=== PATIENT | female | born 1965 | race Caucasian/White ===

== ENCOUNTER 2017-05-25 09:03 | Inpatient (IN) | payer OTHER ==
[~2017-05-25] VITALS: Ht 167.6 cm; Wt 88.5 kg
[2017-05-28] MEDS ORDERED: SUDOGEST30 MG PO (14:48)
[2017-05-28] MEDS ORDERED: VENTOLIN HFA18 GM INH (14:48)
[2017-05-28] MEDS ORDERED: ANIMAL CHEWS1 EACH PO (14:49)
[2017-05-28] MEDS ORDERED: BENADRYL25 MG PO (14:49)
[2017-05-28] MEDS ORDERED: VITAMIN D5000 UNI1 PO (14:50)
--- NOTE | 2017-06-06 10:11 | NUR ---
06/06/17 1011 VanessaPaco neves BP BEING TREATED BY THE OFFC SPEC.
--- NOTE | 2017-06-06 11:45 | NUR ---
PT RECEIVED FROM PACU AT 1120. PT NAUSEATED UPON ARRIVAL, GIVEN 4 MG ZOFRAN. PT TRANSFERED TO BED. BEDSIDE REPORT RECEIVED. PT O2 SATS 88% ON 2L NC, INCREASED TO 3L, CONTINUOUS PULSE OX IN PLACE. PT DROWSY. PT BOWEL TONES ACTIVE. PT ABLE TO WIGGLE TOES, DORSI/PLANTAR FLEXTION WEAK. PT WITH GALO IN PLACE, DRAINING BRIGHT YELLOW URINE. DAYANA PAD INPLACE, NO DRAINAGE NOTED. PT CONTINUES TO BE NAUSEATED, 12.5 MG PHENERGAN GIVEN. PT ALLOWED TO REST.
--- NOTE | 2017-06-06 12:29 | NUR ---
PT CONTINUES TO BE SLEEPY. 02 SATS 93% ON 3L NC. PT DENIES PAIN. PT DENIES NEEDS AT THIS TIME.
--- NOTE | 2017-06-06 13:30 | NUR ---
PT CONTINUES TO BE SLEEPY, O2 SATS 95% ON 3L NC. PT DENIES PAIN. DURAMORPH RESOLVING, PT ABLE TO PLANTAR/DORSI FLEX. GALO CATH DRAININ FREELY. PT DENIES NEEDS AT THIS TIME.
--- NOTE | 2017-06-06 16:23 | NUR ---
PT RESTING IN BED. PT CONTINUES TO BE DROWSY BUT IS MORE ALERT. PT DENIES PAIN, DURAMORPH HAS RESOLVED, CMS INTACT. O2 SATS 99% ON 3L NC, WEANED TO 2L, CONTINUOUS PULSE OX IN PLACE. PT DENIES NAUSEA, INSTRUCTED TO SIP WATER SLOWLY. VAGINAL PACKING IN PLACE, SMALL AMOUNT OF AVGINAL BLEEDING NOTED TO PERINEAL PAD. DISCUSSED PLAN OF CARE FOR EVENING, PLAN TO SIT AT EDGE OF BED. PT DENIES NEEDS AT THIS TIME. SPOUSE AT BEDSIDE.
--- NOTE | 2017-06-06 18:16 | NUR ---
PT RECEIVED FROM PACU AT 1120. PT DROWSY AND NAUSEATED. PT RECEIVING REGLAN, PHENERGAN AND ZOFRAN. PT ON 2L NC, CONTINUOUS PULSE OX. PT ON CLEAR LIQUID DIET, ADVANCE TOLERATED. PT WITH VAGINAL PACKING, SCANT AMOUNT OF VAGINAL BLEEDING. GALO CATH, DRAINING YELLOW URINE, QS. IV FLUIDS INFUSING AT 125 ML/HR.
--- NOTE | 2017-06-06 18:33 | NUR ---
MD TO BEDSIDE. PT EATING CLEAR LIQUID TRAY. PT COMPLAINT OF VAGINAL PAIN. NEW ORDER FOR TORADOL, SCOPE PATCH AND MECLAZINE.
--- NOTE | 2017-06-06 20:59 | NUR ---
PT ATE 50% OF CLEAR LIQUID TRAY, REPORTS NAUSEA MUCH IMPROVED, SAT AT BEDSIDE AND LINENS CHANGED. SCANT VAG DRAINAGE, WATCHING TV PROGRAM. CALL LIGHT IN EASY REACH.
--- NOTE | 2017-06-06 22:30 | NUR ---
RESTING QUEITLY, RESP EVEN AND UNLABORED OXIMETER 95% WITH O2 1L/NC, HRR-[id number]. NO FURTHER C/O NAUSEA. IRAJ PATENT.
--- NOTE | 2017-06-07 01:52 | NUR ---
PT AWAKE WATCHING TV, REQUESTED POPCYCLE TO EAT, CONT TO REPORT NAUSEA MUCH IMPROVED. PAD WITH SCANT AMOUNT LIGHT RED DRAINAGE. STATES SHE IS COMFORTABLE. IVF PATENT. SCD'S ON. CALL LIGHT IN EASY REACH.
--- NOTE | 2017-06-07 03:00 | NUR ---
PT MOSTLY SLEEPING, WOKE WHEN RN CHECKED ON HER. IV CONTINUES TO INFUSE.
--- NOTE | 2017-06-07 04:28 | NUR ---
CHARGE NURSE BROUGHT TO THIS RN ATTENTION THAT THE TORADOL WAS MIS-TIMED BY THE PHARMACY, AND THIS RN INADVERTENTLY GAVE TORADOL 30 MG WITHIN 2 HOURS OF THE DOSE AT 0059, THE EMARS SHOWED THE DOSE BEING LATE AT THE TIME THIS NURSE ADMINISTERED IT. NOTIFIED DR. SUÁREZ [phone] OF THE MED ERROR, AND CHARGE NURSE HAS REPORTED TO THE ASSOCIATE [employer]. PT WITH EYES CLOSED, RESP. EVEN AND UNLABORED AT THIS TIME. GALO WITH ELBA URINE.
--- NOTE | 2017-06-07 06:18 | NUR ---
PT CURRENTLY SLEEPING. DANGLED X 1 THIS SHIFT, WITH FEET OVER EDGE OF BED, BUT NOT SITTING UPRIGHT DUE TO THE PACKING IN VAG. CAUSING PAIN WHEN SITTING ON THE BED. EARLY IN SHIFT WAS VERY NAUSEATED, BUT SINCE 99 PT HAS NOT REQUIRED MEDICATION FOR NAUSEA. DID REQUEST AND RECEIVE PAIN MED X 1 THIS SHIFT. GALO PATENT, PER ORDER, CAN BE REMOVED ONCE PT IS UP AND AROUND. IV INFUSING PER ORDER.
--- NOTE | 2017-06-07 07:20 | NUR ---
BEDSIDE HANDOFF REPORT RECEIVED FROM DIGITAL RETOUCHER RN. PT SLEEPING, LEFT UNDISTURBED. GALO CATH IN PLACE, DRAINING FREELY.
--- NOTE | 2017-06-07 08:03 | NUR ---
PT RESTING IN BED. PT STATES PAIN TOLERABLE, RATING 2/10. O2 SATS 93% ON 1L, CONTINUOUS PULSE OX. IV FLUIDS INFUSING AT 125 ML/HR. PT DENIES NAUSEA, ADVANCED TO REGULAR DIET, ASSISTED WITH ORDERING. PT SAT AND STOOD AT EDGE OF BED, PT ABLE TO AMBULATE WITH ASSISTANCE, GALO CATH REMOVED PER ORDER. PT WITH SCDS IN PLACE, WITHOUT EDEMA. PT DENIES NEEDS AT THIS TIME. DISCUSSED PLAN OF CARE TODAY.
--- NOTE | 2017-06-07 08:38 | NUR ---
AWAKE IN BED. ASSIST NURSE [place]IN HELPING TO STAND. EMPTY GARBAGE. FRESH ICE WATER. CHANGE CHUX. GOT CHAIR READY FOR SITTING.
--- NOTE | 2017-06-07 12:00 | NUR ---
AWAKE IN BED. NEW HOT TEA AND WATER. TOOK VITALS. PATIENT IS DOING GOOD AT THIS TIME.
--- NOTE | 2017-06-07 13:38 | NUR ---
PT RESTING IN BED. ALERT, MOSTLY ORIENTED. INVITED ME IN. SEEMED SOMEWHAT APPREHENSIVE TO TALK, SHORT BRIEF ANSWERS. EXTENDED A BLESSING, WILL CONTINUE TO FOLLOW
--- NOTE | 2017-06-07 14:24 | NUR ---
PT UP TO RESTROOM, ABLE TO VOID 50 ML, POST VOID RESIDUAL FOR 182 ML. PT STATES "I CAN FEEL IT, BUT IT JUST WONT DROP DOWN". WILL CONTINUE TO MONITOR.
--- NOTE | 2017-06-07 14:34 | NUR ---
AWAKE IN BED. ICE WATER. WANTED SNACK OFFERD ICE CREAM SHE SAID YES. EMPTY HAT IN BATHROOM. DID COMPLETE LINEN CHANGE. HELPED WITH SHOWER. BRAIDED HER HAIR.
--- NOTE | 2017-06-07 14:58 | NUR ---
MD NOTIFIED OF POST-VOID RESIDUAL BLADDER SCANS. TELEPHONE ORDER TO PLACE INDWELLING CATHETER NOW, ORDER TO REMOVE CATHETER IN AM.
--- NOTE | 2017-06-07 15:36 | NUR ---
GALO CATH PLACED PER MD ORDER. PT TOLERATED WELL. INITIAL 275 ML CLEAR YELLOW URINE DRAINED. PT RESTING IN BED. PT DENIES NEEDS AT THIS TIME.
--- NOTE | 2017-06-07 16:54 | NUR ---
PT REQUESTING PAIN MEDICATION, RATING PAIN 5/10 TO VAGINA AND PERINEUM. PT GIVEN 1 TAB PERCOCET. PT DENIES OTHER NEEDS AT THIS TIME.
--- NOTE | 2017-06-07 17:39 | NUR ---
PT ALERT/ORIENTED. WEANED TO ROOM AIR, LUNG SOUNDS CLEAR, DIMINISHED BASES. PT PAIN MANAGEMED WITH SCHEDULED IBUPROFEN AND PERCOCET. PT TOLERATING REGULAR DIET, DENIES NAUSEA. UP WITH SBA. GALO CATH REPLACED DUE TO URINARY RETENTION. PT WITH SMALL AMOUNT OF VAGINAL BLEEDING. SALINE LOCKED.
--- NOTE | 2017-06-07 19:44 | NUR ---
RECEIVED REPORT FROM DAY SHIFT RN. PATIENT IS RESTING IN THE RESTROOM. PATIENT DENIES ANY NEEDS.
--- NOTE | 2017-06-07 20:07 | NUR ---
PATIENT ASSISTED BACK FROM THE RESTROOM. PATIENT IS A SBA AND IS STEADY ON HER FEET. PATIENT IS REQUESTING PAIN MEDICATION WITH HER NIGHTLY MEDICATIONS. PATIENT WAS UNABLE TO HAVE A BM. PATIENT IS PASSING GAS THOUGH. PATIENT HAS SCDS IN PLACE. PATIENT DENIES ANY FURTHER NEEDS AT THIS TIME. CALL LIGHT IN REACH.
--- NOTE | 2017-06-07 22:21 | NUR ---
PATIENT ASSESMENT COMPLETED. PATIENT RATES PAIN AT A 7/10. PATIENT DESCRIBES PAIN "PRESSURE". PATIENT GIVEN PRN PAIN MEDICATION. PATIENT GIVEN AN ICE PACK FOR LOWER ABD DISCOMFORT. PATIENTS EVENING MEDICATIONS GIVEN PER ORDER. PATIENT HAS A GALO IN PLACE AND URINE OUTPUT IS QS. PATIENT IS AAOX3. PATIENT DENIES ANY FURTHER NEEDS AT THIS TIME. CALL LIGHT IN REACH.
--- NOTE | 2017-06-08 00:16 | NUR ---
PATIENT IS RESTING IS RESTING IN BED WATCHING TV. PATIENT DENIES ANY NEEDS AT THIS TIME. CALL LIGHT IN REACH.
--- NOTE | 2017-06-08 02:03 | NUR ---
PATIENT IS RESTING INBED WITH EYES CLOSED, RR 18. CALL LIGHT IS WITHIN REACH.
--- NOTE | 2017-06-08 03:23 | NUR ---
PATIENT CALLED AND REQUESTED PAIN MEDICATION FOR 6/10 PAIN IN HER LOWER ABD. PATIENT GIVEN PRN PAIN MEDICATION PER ORDER. PATIENT ALSO GIVEN AN ICE PACK. PATIENT UP AND AMULATED X1 LAP IN THE HALLWAY. PATIENT IS NOW BACK IN BED RESTING, SCDS IN PLACE. PATIENT DENIES ANY FURTHER NEEDS. CALL LIGHT IN REACH.
--- NOTE | 2017-06-08 05:12 | NUR ---
PATIENT RESTED WELL THROUGHOUT THE SHIFT. PATIENT IS ON A REG DIET AND TOLERATING IT WELL. PATIENT HAS A GALO IN PLACE THAT WILL BE REMOVED THIS AM. PATIENT IS SL. PATIENT IS INDEPENDENT IN THE ROOM AND IS STEADY ON HIS FEET. PATIENT IS ON RA. PATIENT RECEIVED X2 PRN PAIN MEDICATION. PATIENT PROVIDED ICE PACKS FOR LOWER ABD. PATIENT IS PASSING GAS BUT HAS BEEN UNLABLE TO HAVE A BM. PATIENT PATIENT AMBULATED X1 LAP IN THE HALLWAY. PATIENT IS AAOX3 AND CALLS APPROPRIATELY. PATIENT HAS DAYANA PAD IN PLACE AND HAS HAD SCANT DRAINAGE.
--- NOTE | 2017-06-08 06:28 | NUR ---
PATIENTS RATES PAIN AT A 4/10. PATIENT GIVEN SCHEDULED MOTRIN. PATIENT DENIES THE NEED FOR FURTHER PAIN MEDICATION. PATIENTS GALO DC'D PER ORDER. PATIENT IS SITTING UP AT THE EDGE OF THE BED. PATIENT CHANGED DAYANA PAD. PATIENT HAS A SMALL AMOUNT OF DRAINAGE. PATIENT DENIES ANY FURTHER NEEDS AT THIS TIME. CALL LIGHT IS WITHIN REACH.
--- NOTE | 2017-06-08 07:16 | NUR ---
RECIEVED BEDSIDE REPORT FROM ELVIA KANG AND ELVIA MORENO. PT IS AWAKE AND ALERT, SITTING ON SIDE OF BED. PT UNDERSTANDS NEED FOR BLADDER SCAN AFTER VOIDING ATTEMPTS. PT REPORTS PAIN IS WELL CONTROLED AT THIS TIME.
--- NOTE | 2017-06-08 08:31 | NUR ---
PT HAS VOIDED X 2, BLADDER SCAN AFTER EACH VOID. PT STATES PAIN IS CONTROLED.
--- NOTE | 2017-06-08 12:03 | NUR ---
PT STATED HER PAIN IS "UNDER CONTROL FOR RIGHT NOW". WOULD LIKE TO REASSESS IN 1 HOUR. PT IS UP WALKING AT THIS TIME.
--- NOTE | 2017-06-08 12:11 | NUR ---
AFTER AMBULATION, PT REPORTED INCREASE IN PAIN. PT REQUESTED ONE NORCO AND REEVALUATE IN ONE HOUR. PT WILL TAKE A SHOWER. PT VERBALIZED UNDERSTANDING OF PLAN OF CARE.
--- NOTE | 2017-06-08 15:09 | NUR ---
PATIENT AWAKE IN BED. DOING WELL. CLEAN ROOM. EMPTY GARBAGE. CHANGED BEDING. GOT ICE WATER. TOOK SHOWER BRAIDED HAIR.
--- NOTE | 2017-06-08 15:27 | NUR ---
PT STATES PAIN IS RESOLVED BY SCHEDULED MOTRIN. PT STATES NO NEED TO VOID AT THIS TIME.
[2017-06-08] MEDS ORDERED: PERCOCET 5-3251 EACH PO (16:17)
[2017-06-08] MEDS ORDERED: IBUPROFEN800 MG PO (16:17)
[2017-06-08] MEDS ORDERED: KONDREMUL2.5 ML/5 M PO (16:18)
[2017-06-08] MEDS ORDERED: SENNALAX-S TAB1 EACH PO (16:18)
--- NOTE | 2017-07-07 07:58 | OR ---
[facility] [address], [place] [address] Signed DATE OF PROCEDURE: 06/06/17 PREOPERATIVE DIAGNOSES: Uterovaginal prolapse and stress incontinence. POSTOPERATIVE DIAGNOSES: Uterovaginal prolapse and stress incontinence. PROCEDURE Total vaginal hysterectomy, partial right salpingectomy, uterosacral plication, Obtryx sling with cystoscopy, and rectocele repair with dermis reinforcement. SURGEON: Suzi Pulliam MD. CURTAIN INSPECTOR: Michael Castro MD. ANESTHESIA: Spinal with IV sedation. ESTIMATED BLOOD LOSS: 200 mL. DRAINS: Tolbert catheter. PACKS: Vaginal. INDICATIONS AND FINDINGS The patient is a 51-year-old female, 4, para 2, AB 2, who has been having increasing symptoms related to her prolapse as well as stress incontinence and now desires surgical correction. At the time of surgery, she had significant uterine prolapse. She had a grade 3 cystocele and a grade 2 rectocele. After performing the hysterectomy, however, her cystocele essentially resolved. DESCRIPTION OF PROCEDURE The patient was prepped and draped in the dorsal lithotomy position. A weighted speculum was placed and the cervix was visualized and grasped on the anterior and posterior lips with single-tooth tenaculum. The cervix was then injected with 1% Lidocaine with Epi 1:200,000 total volume of 10 mL. The posterior cul-de-sac was then opened sharply. The uterosacral ligaments were grasped bilaterally using the curved Z clamps, divided with James scissors and suture ligated with 0 Vicryl. The swan neck speculum was then placed into the posterior cul-de-sac. The vaginal mucosa was then circumscribed with a knife and sharp dissection was used to push the vaginal tissue up off the cervix. The anterior cul-de-sac was entered sharply at this time. Serial bites were then taken in the cardinal ligament areas and the uterine vessel areas taking care to incorporate both the anterior and posterior leaves of the peritoneum. Each of these pedicles were divided with the James scissors and then suture ligated with 0 Vicryl. This was done bilaterally. Electronically Signed By: SUZI PLULIAM MD 07/07/17 0758 PATIENT NAME: PIPE BLANCO OPERATIVE REPORT DATE OF : 61 PHYSICIAN: SUZI PULLIAM MD REPORT #: [id number] REPORT IS CONFIDENTIAL AND NOT TO BE RELEASED WITHOUT AUTHORIZATION [facility] [address] [place] [id number] Signed Following this, the remaining broad ligament pedicles could be clamped across with a curved Z clamps and divided with the James scissors. The specimen was thus removed. Free ties of 0 Vicryl followed by suture ligatures of 0 Vicryl were placed on the broad ligament pedicles. The patient's right tube was quite difficult to grasp except at the fimbriated end. It was managed to be pulled down and clamped across with a curved Z clamp and excised. A free tie of 0 Vicryl was placed in this area. The ovary appeared normal. The patient's left tube could not be pulled down. The ovary was seen and was normal. Following this, there were some bleeding points on each side just below the uterine vessel area and these were controlled with [id number] sutures of 0 Vicryl. The swan neck speculum was replaced with a shorter weighted speculum. There appeared to be fairly poor support to the cuff however, and the decision was made to use 2-0 Ethibond to plicate the uterosacral ligaments. Three of the sutures were placed incorporating the uterosacral ligaments weaving across the posterior peritoneum and exiting via the opposite uterosacral ligament. These were tied serially higher in the cul de sac. Following this, angle sutures of 0 Vicryl were placed. These incorporated the vaginal mucosa, exteriorized the broad ligament pedicles, came across the peritoneum anteriorly and exited via the uterosacral ligaments inferiorly. These were tied laterally and this was done bilaterally. Following this, the peritoneum was closed with a [id number] sutures of 3-0 Vicryl. The cuff was closed with a running locking stitch of 0 Vicryl from one angle to the other. Good hemostasis was noted. Following this, it was found that the anterior vaginal wall was quite short, but there was no evidence of cystocele at this point, and the decision was made to proceed just with sling placement and cystoscopy. The vaginal mucosa was incised in the midline using the knife. The vaginal mucosa was undermined sharply with the Metzenbaum scissors bilaterally over the mid urethral area. This dissection was carried out laterally to behind the pubic rami. Following this, an incision was made over the obturator notches on each side. The trocars were then placed for the Obtryx sling. These were placed at the most medial and lowest portion of the obturator notch. These went through the notch behind the pubic rami and into the apex of the vaginal incision made previously. Both of the trocars were then placed and the cystoscopy was done. The Tolbert catheter was removed and a 70 degree scope was used. The patient had received IV fluorescein. The bladder was thoroughly evaluated and there was no evidence of any injury to the bladder from the trocars or from the hysterectomy. Clear fluorescein stained urine was seen to freely egress from both of the ureteral orifices. Following this, the sling was placed. It was placed in the mid urethral area, taking care to keep it fairly loose and flat. The tab was then cut and the coverings for the sling removed. The excess was trimmed at the skin. The vaginal mucosa was then closed with a running suture of 2-0 Vicryl. The skin incisions over the labia were closed with interrupted sutures of 3-0 Vicryl Rapide. The rectocele repair was then begun. A triangle of tissue was removed from the perineal Electronically Signed By: SUZI PULLIAM MD 07/07/17 0758 PATIENT NAME: PIPE BLANCO OPERATIVE REPORT DATE OF : 61 PHYSICIAN: SUZI PULLIAM MD REPORT #: [id number] REPORT IS CONFIDENTIAL AND NOT TO BE RELEASED WITHOUT AUTHORIZATION [facility] [address] [place] [id number] Signed body with the knife. The vaginal mucosa was then undermined and incised in the midline to the apex of the vagina. The vaginal mucosa was from the underlying tissue with a combination of blunt and sharp dissection. This dissection was carried out superiorly and laterally to the ischial spine. Following this, the Capio device was used to deploy a 0 Vicryl suture into the sacrospinous ligament medial to the spine. These were for use later. Following this, the perirectal fascial type tissue was reapproximated with interrupted sutures of 0 Vicryl. The fascia was of poor quality and it was primarily a tear patient's left side and from the cuff to the upper third. After closing this defect, a rectal examination was done, which confirmed that there were no sutures compromising the rectal lumen and there was good reduction of the defect. Dermis, which had been prepared previously and trimmed into a T-shirt type shape was then sutured at the arms using the Capio sutures. These were tied down with appropriate tension across the top of the vagina. The graft was then tacked into place with in terrupted sutures of 2-0 Vicryl. This was done across the top, at the arm holes, and down the sides. Following this, another rectal examination was done, which confirmed good reduction of the defect and no sutures compromising the rectal lumen. Following this, FloSeal was injected around the sacrospinous ligaments on each side to aid in hemostasis. The vaginal mucosa was trimmed quite a bit as there was significant redundancy. The vaginal mucosa was then closed from the top of the vagina to the hymenal ring. Following this, the perineal body was recreated with interrupted sutures of 2-0 Vicryl. The posterior fourchette was recreated with a running suture of 2-0 Vicryl. The skin of the perineum was closed with a subcuticular suture of the 2-0 Vicryl. Inspection of the vault showed good length and caliber as well as good hemostasis. The vaginal canal was then packed with sulfa-coated gauze. All sponge and needle counts were correct. The patient tolerated the procedure well and was taken to the recovery room in good condition. MD AGUS AgrawalW/Barbaral /[id number] cc: Electronically Signed By: SUZI PULLIAM MD 07/07/17 0758 PATIENT NAME: BELLAPIPE OPERATIVE REPORT DATE OF : 61 PHYSICIAN: SUZI PULLIAM MD REPORT #: [id number] REPORT IS CONFIDENTIAL AND NOT TO BE RELEASED WITHOUT AUTHORIZATION [facility] [address] [facility] [place] [address] Signed MD Thalia Hidalgo NP Electronically Signed By: SUZI PULLIAM MD 07/07/17 0758 PATIENT NAME: ALVAJOVITAPIPE OPERATIVE REPORT DATE OF : 61 PHYSICIAN: SUZI PULLIAM MD REPORT #: [id number] REPORT IS CONFIDENTIAL AND NOT TO BE RELEASED WITHOUT AUTHORIZATION
== END 2017-06-08 17:30 | disposition home or self-care (01) | DRG 743 ==
LOC: DSVR 06-06 05:50 → MS 06-06 06:45
PROVIDERS: ADMIT Obstetrics & Gynecology
PROC: 0JU Subcutaneous Tissue and Fascia, Supplement (ICD-10-PCS; 2017-06-06)
PROC: 0UB Female Reproductive System, Excision (ICD-10-PCS; 2017-06-06)
PROC: 0TSC4ZZ Reposition Bladder Neck, Percutaneous Endoscopic Approach (ICD-10-PCS; principal; 2017-06-06 06:45)
PROC: 0UT98ZZ Resection of Uterus, Via Natural or Artificial Opening Endoscopic (ICD-10-PCS; 2017-06-06 06:45)
PROC: 0UTC8ZZ Resection of Cervix, Via Natural or Artificial Opening Endoscopic (ICD-10-PCS; 2017-06-06 06:45)
DX: N81.3 Complete uterovaginal prolapse (principal); N39.3 Stress incontinence (female) (male); N70.91 Salpingitis, unspecified
CPT/HCPCS: 00944; 51702; 51798; 80048; 85025; 94644; 94760; 94762; C1762; C1771; C2631; J0690; J0694; J1100; J1200; J1644; J1885; J2250; J2274; J2405; J2550; J2704; J2765; J3010; J7120

== ENCOUNTER 2017-10-02 06:35 | Day surgery (SDC) | payer OTHER ==
[~2017-10-02] VITALS: Ht 167.6 cm; Wt 94.8 kg
[~2017-10-02 06:35] MED LIST: ANIMAL CHEWS1 EACH PO; BENADRYL25 MG PO; IBUPROFEN800 MG PO; KONDREMUL2.5 ML/5 M PO; PERCOCET 5-3251 EACH PO; SENNALAX-S TAB1 EACH PO; SUDOGEST30 MG PO; VENTOLIN HFA18 GM INH; VITAMIN D5000 UNI1 PO
--- NOTE | 2017-10-02 08:36 | NUR ---
10/02/17 0836 Skylar Ni 0834 to pacu, RESP EVEN UNLABORED.
--- NOTE | 2017-10-10 10:10 | OR ---
[facility] [address] [place], [place] [address] Signed DATE OF OPERATION: 10/02/2017 SURGEON: Igor Pastrana MD PREOPERATIVE DIAGNOSIS: Screening. POSTOPERATIVE DIAGNOSIS: Minimal internal hemorrhoids. PROCEDURE: Colonoscopy without biopsy. ESTIMATED BLOOD LOSS: None. INDICATIONS: Pipe is a 51-year-old female, who was asked to see me for her initial screening colonoscopy. She has no lower GI complaints. There is no family history of colon cancer or polyps. She has never had a previous colonoscopy. In the office, I gave her a pamphlet on colonoscopy and we looked at that together. She understands the nature of that test along with the risks including, but not limited to gas bloating, crampy abdominal pain, bleeding, perforation, requiring surgery, and missed diagnosis. She also understands the need for IV conscious sedation. She had expressed understanding and wished to proceed. PROCEDURE NOTE: Pipe was taken into our endoscopy suite and placed in the left lateral decubitus position. She was given IV sedation with 9 mg of Versed and 150 mcg of fentanyl. A digital rectal exam was performed and this was unremarkable. The adult colonoscope was introduced and advanced under direct visualization of the camera up into the cecum without difficulty. She had couple areas of liquid stool that I had to irrigate and suctioned out. The scope was then slowly withdrawn. We saw no pathology throughout the entire colon or rectum. Upon retroflexion of the scope, she has very minimal internal hemorrhoid tissue. After this, the gas was suctioned out and the colonoscope removed. Pipe tolerated procedure quite well. RECOMMENDATIONS: Pipe will follow up in my office in 10 years for repeat colonoscopy. Electronically Signed By: IGOR PASTRANA MD 10/10/17 1010 PATIENT NAME: PIPE BLANCO OPERATIVE REPORT DATE OF : 61 PHYSICIAN: IGOR PASTRANA MD REPORT #: [id number] REPORT IS CONFIDENTIAL AND NOT TO BE RELEASED WITHOUT AUTHORIZATION [address] [address] Signed MD CAITLIN Arthur/NGUYỄN /[id number] cc: SHEREEN Perla MD Electronically Signed By: IGOR PASTRANA MD 10/10/17 1010 PATIENT NAME: PIPE BLANCO OPERATIVE REPORT DATE OF : 61 PHYSICIAN: IGOR PASTRANA MD REPORT #: [id number] REPORT IS CONFIDENTIAL AND NOT TO BE RELEASED WITHOUT AUTHORIZATION
== END 2017-10-02 09:00 | disposition home or self-care (01) ==
LOC: DS 06:35
PROVIDERS: Colon & Rectal Surgery
PROC: 0DJD8ZZ Inspection of Lower Intestinal Tract, Via Natural or Artificial Opening Endoscopic (ICD-10-PCS; principal; 2017-10-02 08:15)
DX: Z12.11 Encounter for screening for malignant neoplasm of colon (principal); K64.8 Other hemorrhoids; I10 Essential (primary) hypertension; I73.9 Peripheral vascular disease, unspecified; E78.5 Hyperlipidemia, unspecified; E55.9 Vitamin D deficiency, unspecified; E66.9 Obesity, unspecified; M15.9 Polyosteoarthritis, unspecified; Z90.710 Acquired absence of both cervix and uterus; Z98.84 Bariatric surgery status; Z87.891 Personal history of nicotine dependence; Z79.899 Other long term (current) drug therapy; Z68.33 Body mass index [BMI] 33.0-33.9, adult
CPT/HCPCS: 99152; 99153; J2250; J3010; J7120